=== PATIENT | female | born 1955 | race Caucasian/White ===

== ENCOUNTER 2017-11-02 19:21 | Emergency (ER) | payer MEDICAID ==
[~2017-11-02] VITALS: Ht 157.5 cm; Wt 58.0 kg
[2017-11-02] MEDS ORDERED: IBUPROFEN 600MG TABLET PO ONE (23:30)
[2017-11-03 00:54] VITALS: BP 133/61
== END 2017-11-03 02:01 | disposition home or self-care (01) ==
LOC: ER 19:21
DX: M25.562 Pain in left knee (principal); M25.552 Pain in left hip; K21.9 Gastro-esophageal reflux disease without esophagitis; M54.2 Cervicalgia; M54.5 Low back pain; Z96.652 Presence of left artificial knee joint; W01.0XXA Fall on same level from slipping, tripping and stumbling without subsequent striking against object, initial encounter; Y93.89 Activity, other specified; Y92.512 Supermarket, store or market as the place of occurrence of the external cause; Y99.8 Other external cause status
CPT/HCPCS: 71045; 72040; 72070; 72100; 72170; 73562; 99284; Z7610